=== PATIENT | male | born 2005 | race Two or more races ===

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

== ENCOUNTER 2024-12-24 14:15 | Inpatient (IN) | payer MEDICAID ==
[~2024-12-24] VITALS: Ht 180.3 cm; Wt 83.6 kg
[2024-12-24] MEDS ORDERED: ACETAMINOPHEN 500 MG TAB or CAP PO STA (14:54)
[2024-12-24] MEDS: ACETAMINOPHEN 500 MG TAB or CAP PO ONE (15:00)
--- NOTE | 2024-12-24 15:05 | ED.PDOC ---
History of Present Illness HPI Comments 19M presents to the ER w/ the c/c of a flu. Pt reports on having a GIL, N/, Chills, Fever and Nasal Congestion since yesterday. PMHx:Denies Any SHx:Denies Any HPI: Poor Historian. Family later stated the patient has been having pneumonia every two months since he returned from [place] in July of this year. Most recently he was at [facility] two months ago for the same thing. REVIEW OF SYSTEMS: CONSTITUTIONAL: Denies acute: diaphoresis, HEAD: Denies acute: photophobia Eyes: Denies acute: Double vision, vision loss, eye pain, eye discharge. EARS: Denies acute: tinnitus, hearing loss, ear discharge, ear pain, THROAT: Denies acute: sore throat, swelling, difficulty swallowing , pain with swallowing, change in voice. NECK: Denies acute: neck pain, neck swelling, stiff neck. HEART: Denies acute : chest pain, palpitations, LUNGS: Denies acute: SOB, wheezing, hemoptysis ABDOMEN: Denies acute: abdominal pain, Vomiting, diarrhea, melena , hematemesis, hematochezia SKIN: Denies acute: rash, redness, lesions, itchiness. EXTREMITIES: Denies acute: calf pain, numbness, tingling, weakness, denies pain in extremity. Denies acute: Low back pain. Neuro: Denies acute: focal neurological deficit, motor or sensory focal neurological deficit, tremors, seizure like activity, confusion, dizziness, change in mental status, loss of bowel or bladder function, cauda equina like symptoms. : Denies acute: dysuria, hematuria, flank pain, increase in urinary frequency. PSYCH: Denies acute: hallucination, suicidal ideation, homicidal ideation. PHYSICAL EXAM: General: ----[id number]----acute distress, awake and alert. Head: normocephalic, atraumatic. Neck: supple, trachea is midline, no swelling. Throat: Normal phonation. Eyes:, no erythema, no purulent discharge, no proptosis, no icterus. Heart: regular tachycardia in the setting of fever, no significant murmur appreciated. Lungs: no apparent respiratory distress, Able to speak in full sentences. No wheezing, no rhonchi, no crackles. No stridors Clear to auscultation bilaterally. Abdomen: non tender to palpation, non distended, soft, no guarding, no rebound, + bowel sounds. Neuro: Awake, Alert, oriented to name, self, situation, follows commands GCS=15. Speech is normal. Skin: no petechia, no purpura, no cyanosis, non-pale, not jaundice. Lower extremities: --no - Pitting edema no deformity, no focal swelling, no calf TTP. Makes eye contact. moves all four extremities. Face: no apparent facial droop. Ambulating in the ED independently. No nuchal rigidity, Kernig's sign, Brudzinski's sign, no meningeal signs. ED COURSE: DISCLAIMER: This medical document was created using an electronic medical record system with voice recognition software and computerized dictation system. Although this document has been carefully reviewed, there might still be some phonetic and ty pographical errors. Occasional wrong-word or "sound-alike" substitutions may have occurred due to the inherent limitations of voice recognition software. These areas are purely typographical due to imperfections of the software programs and do not reflect any compromise in the patient's medical care. Please read the chart carefully and recognize, using context, where these substitutions have occurred. Chief Complaint: Fever Time Seen by MD: 15:00 Primary Care Provider: KAMARI Reviewed Notes: Nurses Notes, Medications, Allergies Allergies: Coded Allergies: NO KNOWN ALLERGIES (Unverified , 02/26/10) Information Source: Patient Mode of Arrival: Ambulatory Severity: Moderate Past Medical History PAST MEDICAL HISTORY: Denies Surgical History: Denies all surgeries Family History Family History: Reviewed,noncontributory to illness, Unknown Social History Smoker: Non-Smoker Alcohol: Denies ETOH Use Drugs: Denies Drug Use Lives In: Home Was a procedure done? Was a procedure done?: No X-Ray, Labs, Meds, VS Vital Signs Date Time Temp Pulse Resp B/P (MAP) Pulse Ox O2 Delivery O2 Flow Rate FiO2 12/24/24 19:10 99.9 108 20 162/78 (106) 99 99.9 12/24/24 17:00 98.9 99 20 155/68 (97) 99 98.9 12/24/24 15:23 103.1 128 20 123/64 (83) 96 103.1 12/24/24 15:00 103.1 Lab Test 12/24/24 15:06 12/24/24 15:00 Range/Units Influenza Type A Antigen Negative Negative Influenza Type B Antigen Negative Negative SARS-CoV-2 Antigen (Rapid) Negative NEGATIVE White Blood Count 11.8 H 4.4-10.8 10^3/uL Red Blood Count 6.06 H 4.5-5.90 10^6/uL Hemoglobin 17.0 13.5-17.5 g/dL Hematocrit 49.9 41.0-53.0 % Mean Corpuscular Volume 82.3 80.0-100.0 fL Mean Corpuscular Hemoglobin 28.1 28.0-32.0 pg Mean Corpuscular Hemoglobin Concent 34.1 32.0-36.0 g/dL Red Cell Distribution Width 13.8 11.8-14.3 % Platelet Count 151 140-450 10^3/uL Mean Platelet Volume 10.1 6.9-10.8 fL Neutrophils (%) (Auto) 85.3 H 37.0-80.0 % Lymphocytes (%) (Auto) 11.0 10.0-50.0 % Monocytes (%) (Auto) 3.4 0.0-12.0 % Eosinophils (%) (Auto) 0.2 0.0-7.0 % Basophils (%) (Auto) 0.1 0.0-2.0 % Neutrophils # (Auto) 10.0 H 1.6-8.6 10 ^3/uL Lymphocytes # (Auto) 1.3 0.4-5.4 10 ^3/uL Monocytes # (Auto) 0.4 0-1.3 10 ^3/uL Eosinophils # (Auto) 0 0-0.8 10 ^3/uL Basophils # (Auto) 0 0-0.2 10 ^3/uL Nucleated Red Blood Cells 0.3 % Sodium Level 139 136-145 mmol/L Potassium Level 3.9 3.5-5.1 mmol/L Chloride Level 102 98-107 mmol/L Carbon Dioxide Level 25 20-31 mmol/L Anion Gap 12 5-15 Blood Urea Nitrogen 10 9-23 mg/dL Creatinine 1.12 0.700-1.30 mg/dL Glomerular Filtration Rate Calc 96 >90 mL/min BUN/Creatinine Ratio 8.9 L 10.0-20.0 Serum Glucose 111 H 74-106 mg/dL Lactic Acid Level 2.0 0.4-2.0 mmol/L Calcium Level 11.1 H 8.7-10.4 mg/dL Total Bilirubin 1.3 H 0.2-1.0 mg/dL Aspartate Amino Transferase (AST) 16 <34 U/L Alanine Aminotransferase (ALT) 25 7-40 U/L Alkaline Phosphatase 82 46-116 U/L Total Protein 7.4 5.7-8.2 g/dL Albumin 5.6 H 3.2-4.8 g/dL Monoscreen Negative Current Medications Medications (Trade) Dose Ordered Sig/Seth Route Start Time Stop Time Status Last Admin Sodium Chloride 1,000 ml @ 1,000 mls/hr Q1H ONCE IV 12/24/24 15:00 12/24/24 15:59 DC 12/24/24 19:31 Acetaminophen (Tylenol Tablet Or Capsule) 1,000 mg ONCE ONCE PO 12/24/24 15:00 12/24/24 15:01 DC 12/24/24 15:00 Ceftriaxone Sodium 50 ml @ 100 mls/hr ONCE ONCE IV 12/24/24 15:45 12/24/24 16:14 DC 12/24/24 19:30 [place] [address] Ph: [phone] DIAGNOSTIC IMAGING Diagnostic Imaging Report : [id number] Signed PATIENT: YO ULLOA ROMANACCT: [id number] UNIT: [id number] : 2005 LOC: ER ROOM / BED: / AGE / SEX: 19 / M ADM STATUS: REG ER SERVICE 1446 ORDERING PHYSICIAN: SHAILESH PA DO PROCEDURE(s): CXRP - CHEST PORTABLE REASON: flu like, ORDER NUMBER(s): [id number], ACCESSION NUMBER(s): [id number] CHEST RADIOGRAPH Indication: flu like, Technique: Single frontal view of the chest was obtained Comparison: None FINDINGS: Lines and Tubes: None Lungs: Left mid lung zone patchy opacity. Pleura: No effusion. No pneumothorax. Cardiomediastinal contours: Unremarkable Bones: No acute osseous abnormality. IMPRESSION: Left mid lung zone patchy opacity which may represent pneumonia in the right clinical setting. ATED BY: IVETH MAX DO DICTATED DATE/TIME: 12/24/24 1548 SIGNED BY: IVETH MAX DO SIGNED DATE/TIME: 12/24/24 1548 CC: Time of 1ST Reevaluation: 15:30 Reevaluation 1ST: Unchanged Patient Education/Counseling: Diagnosis, Treatment, Prognosis Family Education/Counseling: No Family Present Departure 1 Departure Time of Disposition: 16:54 Impression: Primary Impression: Community acquired pneumonia Disposition: ADMITTED INPATIENT Admit to: Tele Condition: Guarded Discharged With: Self Critical Care Note Critical Care Time?: No I personally scribed for SHAILESH PA DO ([email or web address]) on 12/24/24 at 15:04. El ectronically submitted by Yemi Estrada ([email or web address]). I personally scribed for SHAILESH PA DO ([email or web address]) on 12/24/24 at 16:30. Elec tronically submitted by Yemi Estrada ([email or web address]). SHAILESH PA DO Dec 24, 2024 15:04
[2024-12-24 15:19] LABS: Basophils # (auto) 0 10 ^3/uL (0-0.2); Eosinophils # (auto) 0 10 ^3/uL (0-0.8); Lymphocytes # (auto) 1.3 10 ^3/uL (0.4-5.4); Mean Corpuscular Volume 82.3 fL (80.0-100.0); Monocytes # (auto) 0.4 10 ^3/uL (0-1.3)
[2024-12-24 15:20] LABS: Basophils % (auto) 0.1 % (0.0-2.0); Eosinophils % (auto) 0.2 % (0.0-7.0); Hematocrit 49.9 % (41.0-53.0); Mean Corpuscular Hemoglobin 28.1 pg (28.0-32.0); Mean Corpuscular Hgb Conc. 34.1 g/dL (32.0-36.0); Monocytes % (auto) 3.4 % (0.0-12.0); Neutrophils % (auto) 85.3 % (37.0-80.0); Nucleated Red Blood Cells % 0.3 %; Platelet Count (auto) 151 10^3/uL (140-450); Red Blood Cells 6.06 10^6/uL (4.5-5.90); Red Cell Distribution Width 13.8 % (11.8-14.3); White Blood Cell 11.8 10^3/uL (4.4-10.8)
[2024-12-24 15:32] LABS: Alanine Aminotransferase 25 U/L (7-40); Alkaline Phosphatase 82 U/L (46-116); Anion Gap 12 (5-15); Aspartate Aminotransferase 16 U/L (<34); BUN/Creatinine Ratio 8.9 (10.0-20.0); Blood Urea Nitrogen 10 mg/dL (9-23); Carbon Dioxide 25 mmol/L (20-31); Chloride 102 mmol/L (98-107); Potassium 3.9 mmol/L (3.5-5.1); Sodium 139 mmol/L (136-145); Total Protein 7.4 g/dL (5.7-8.2)
[2024-12-24 15:33] LABS: Albumin 5.6 g/dL (3.2-4.8); Bilirubin, Total 1.3 mg/dL (0.2-1.0); Calcium 11.1 mg/dL (8.7-10.4); Glucose 111 mg/dL (74-106)
[2024-12-24 15:41] LABS: COVID19 ANTIGEN SOFIA FIA NEGATIVE (NEGATIVE); Rapid Influenza A Negative (Negative); Rapid Influenza B Negative (Negative)
--- NOTE | 2024-12-24 15:50 | DVH ---
CHEST RADIOGRAPH Indication: flu like, Technique: Single frontal view of the chest was obtained Comparison: None FINDINGS: Lines and Tubes: None Lungs: Left mid lung zone patchy opacity. Pleura: No effusion. No pneumothorax. Cardiomediastinal contours: Unremarkable Bones: No acute osseous abnormality. IMPRESSION: Left mid lung zone patchy opacity which may represent pneumonia in the right clinical setting.
[2024-12-24] MEDS ORDERED: guaiFENesin-DM 100/10mg/5ml SYR PO PRN (19:30)
[2024-12-24] MEDS: cefTRIAXone 1GM/50ML D5W 50 ML IV ONE (19:30)
[2024-12-24] MEDS: SODIUM CHLORIDE 0.9% 1,000 ML IV ONE ×2 (19:31→20:14)
[2024-12-24 19:32] LABS: Urine Bacteria None Seen /hpf (None Seen)
[2024-12-24 19:38] LABS: Urine Blood Negative /uL (Negative); Urine Clarity Clear (Clear); Urine Color Yellow (Yellow); Urine Mucus FEW (None Seen); Urine Protein, UAD 1+ (Negative); Urine Specific Gravity 1.037 (1.001-1.035); Urine Squamous Epithelial Cell FEW /hpf (<5); Urine Urobilinogen 8 mg/dL (Negative); Urine WBC 1 /HPF (0-3)
[2024-12-24] MEDS: ONDANSETRON HCL 4 MG/2 ML VIAL IV PRN (19:47)
[2024-12-24] MEDS: KETOROLAC TROMETH 30 MG/ML 1ML VIAL IV ONE (19:49)
[2024-12-24] MEDS: AZITHROMYCIN 500MG/ 250ML 250 ML IV ONE (19:53)
[2024-12-24] MEDS: ACETAMINOPHEN 325 MG TAB PO PRN (20:18)
[2024-12-24 20:32] VITALS: O2SAT 100
[2024-12-24 21:00] VITALS: BP 107/67; PULSE 94; RESP 18; TEMP 100; O2SAT 100
[2024-12-24 21:07] VITALS: BP 92/54; PULSE 83; RESP 16; TEMP 98.7; O2SAT 96
[2024-12-24] MEDS ORDERED: TEMAZEPAM 15 MG CAP PO PRN (22:00)
--- NOTE | 2024-12-24 22:10 | DVHHP2 ---
History of Present Illness Reason for Visit: Flu-like symptoms History of Present Illness 19-year-old male presents for evaluation of flu-like symptoms have been ongoing for the past two days. Reports having body aches, cough, fever and some shortness for breath. No other acute complaints reported. Past Medical History Denies Family History Noncontributory Smoke: No ALCOHOL: none Drugs: None Review of Systems Review of Systems Review of systems are currently negative otherwise addressed in HPI. Allergies: Coded Allergies: NO KNOWN ALLERGIES (Unverified , 02/26/10) Medications Current Medications Medications Dose Ordered Sig/Seth Route Start Time Stop Time Status Last Admin Dose Admin Acetaminophen 650 mg ONCE STAT PO 12/24/24 14:54 12/24/24 14:55 Cancel Ceftriaxone Sodium 50 ml @ 100 mls/hr DAILY@09 IV 12/25/24 09:00 Azithromycin 250 ml @ 125 mls/hr DAILY IV 12/25/24 10:00 Albuterol 2.5 mg Q6HPRN PRN NEB 12/24/24 19:30 Guaifenesin/ Dextromethorphan 10 ml Q4HP PRN PO 12/24/24 19:30 Temazepam 15 mg QHSP PRN PO 12/24/24 22:00 Ondansetron HCl 4 mg Q4HP PRN IV 12/24/24 19:30 12/24/24 19:47 4 MG Acetaminophen 650 mg Q6HP PRN PO 12/24/24 19:30 12/24/24 20:18 650 MG Exam Vital Signs Vital Signs Date Time Temp Pulse Resp B/P (MAP) Pulse Ox O2 Delivery O2 Flow Rate FiO2 12/24/24 21:07 16 Room Air* 0 21 12/24/24 21:07 98.7 83 92/54 (62) 96 98.7 Exam Gen: 19-year-old male in mild distress Skin: Warm, dry, normal color and texture, no rash. HEENT: Normocephalic atraumatic, mucous membranes moist and pink. Neck: Cervical and supraclavicular nodes normal without enlargement, trachea is midline, thyroid gland is normal without masses. Pulmonary: Clear to auscultation and percussion bilaterally. Cardiac: Regular rate and rhythm. No murmur Abdomen: Soft, nontender, nondistended, bowel sounds present all 4 quadrants, no guarding, no rigidity, no organomegaly. Extremities: No cyanosis, clubbing, no edema Neuro: Cranial nerves II through XII grossly intact, normal affect and speech, no focal motor deficits. Labs/Xrays ORDERING PHYSICIAN: SHAILESH PA DO PROCEDURE(s): CXRP - CHEST PORTABLE REASON: flu like, ORDER NUMBER(s): [id number], ACCESSION NUMBER(s): [id number] CHEST RADIOGRAPH Indication: flu like, Technique: Single frontal view of the chest was obtained Comparison: None FINDINGS: Lines and Tubes: None Lungs: Left mid lung zone patchy opacity. Pleura: No effusion. No pneumothorax. Cardiomediastinal contours: Unremarkable Bones: No acute osseous abnormality. IMPRESSION: Left mid lung zone patchy opacity which may represent pneumonia in the right clinical setting. Labs Test 12/24/24 19:31 12/24/24 15:06 12/24/24 15:00 Range/Units Urine Color Yellow Yellow Urine Clarity Clear Clear Urine pH 8.0 5.0-9.0 Urine Specific [place] 1.037 H 1.001-1.035 Urine Protein 1+ H Negative Urine Ketones 2+ H Negative Urine Blood Negative Negative /uL Urine Nitrite Negative Negative Urine Bilirubin Negative Negative Urine Urobilinogen 8 H Negative mg/dL Urine Leukocyte Esterase 1+ Negative /uL Urine RBC 1 0 - 3 /hpf Urine Microscopic WBC 1 0-3 /HPF Urine Squamous Epithelial Cells Few <5 /hpf Urine Bacteria None seen None Seen /hpf Urine Mucus Few None Seen Urine Glucose Normal Normal mg/dL Influenza Type A Antigen Negative Negative Influenza Type B Antigen Negative Negative SARS-CoV-2 Antigen (Rapid) Negative NEGATIVE White Blood Count 11.8 H 4.4-10.8 10^3/uL Red Blood Count 6.06 H 4.5-5.90 10^6/uL Hemoglobin 17.0 13.5-17.5 g/dL Hematocrit 49.9 41.0-53.0 % Mean Corpuscular Volume 82.3 80.0-100.0 fL Mean Corpuscular Hemoglobin 28.1 28.0-32.0 pg Mean Corpuscular Hemoglobin Concent 34.1 32.0-36.0 g/dL Red Cell Distribution Width 13.8 11.8-14.3 % Platelet Count 151 140-450 10^3/uL Mean Platelet Volume 10.1 6.9-10.8 fL Neutrophils (%) (Auto) 85.3 H 37.0-80.0 % Lymphocytes (%) (Auto) 11.0 10.0-50.0 % Monocytes (%) (Auto) 3.4 0.0-12.0 % Eosinophils (%) (Auto) 0.2 0.0-7.0 % Basophils (%) (Auto) 0.1 0.0-2.0 % Neutrophils # (Auto) 10.0 H 1.6-8.6 10 ^3/uL Lymphocytes # (Auto) 1.3 0.4-5.4 10 ^3/uL Monocytes # (Auto) 0.4 0-1.3 10 ^3/uL Eosinophils # (Auto) 0 0-0.8 10 ^3/uL Basophils # (Auto) 0 0-0.2 10 ^3/uL Nucleated Red Blood Cells 0.3 % Sodium Level 139 136-145 mmol/L Potassium Level 3.9 3.5-5.1 mmol/L Chloride Level 102 98-107 mmol/L Carbon Dioxide Level 25 20-31 mmol/L Anion Gap 12 5-15 Blood Urea Nitrogen 10 9-23 mg/dL Creatinine 1.12 0.700-1.30 mg/dL Glomerular Filtration Rate Calc 96 >90 mL/min BUN/Creatinine Ratio 8.9 L 10.0-20.0 Serum Glucose 111 H 74-106 mg/dL Lactic Acid Level 2.0 0.4-2.0 mmol/L Calcium Level 11.1 H 8.7-10.4 mg/dL Total Bilirubin 1.3 H 0.2-1.0 mg/dL Aspartate Amino Transferase (AST) 16 <34 U/L Alanine Aminotransferase (ALT) 25 7-40 U/L Alkaline Phosphatase 82 46-116 U/L Total Protein 7.4 5.7-8.2 g/dL Albumin 5.6 H 3.2-4.8 g/dL Monoscreen Negative Assessment/Plan Assessment/Plan Assessment Community-acquired pneumonia Leukocytosis Plan Admit the patient to Med surge to the hospitalist Rocephin/azithromycin Med nebs Continue treatment per orders. Plan discussed with: Patient My Orders Orders - MAYCO ULLOA Procedure Category Date Status Time Admit ADMIT 12/24/24 Transmitted 19:22 Regular Diet DIET 12/25/24 Transmitted Breakfast Ceftriaxone 1gm/50ml PHA 12/25/24 In Process D5w (Rocephin) 09:00 Azithromycin 500mg/ PHA 12/25/24 In Process 250ml (Zithromax 50 10:00 Albuterol Medneb PHA 12/24/24 In Process (Ventolin Medneb) 19:30 Guaifenesin-Dextromet PHA 12/24/24 In Process Liquid (Robitussin 19:30 Basic Metabolic Panel LAB 12/25/24 Verified 04:00 Temazepam (Restoril) PHA 12/24/24 In Process 22:00 Ondansetron Hcl PHA 12/24/24 In Process (Zofran) 19:30 Complete Blood Count LAB 12/25/24 Verified 04:00 Condition: Stable BE 12/24/24 In Process 19:24 Acetaminophen Tablet PHA 12/24/24 In Process (Tylenol Tablet) 19:30 Bedrest With Bathroom BE 12/24/24 In Process Privileg 19:24 Mrsa Screen BILLY 12/24/24 Uncollected 22:06 Date of Service: Dec 24, 2024 Billing Provider: MAYCO ULLOA Common Visit Codes: [id number] INP/OBS CARE (HIGH) MAYCO ULLOA Dec 24, 2024 22:10
[2024-12-25] VITALS (11 sets, daily range): BP systolic 90–110; BP diastolic 50–67; PULSE 57–95; RESP 16–18; TEMP 96.2–98.4; O2SAT 95–98
[2024-12-25 06:46] LABS: Basophils # (auto) 0 10 ^3/uL (0-0.2); Basophils % (auto) 0.2 % (0.0-2.0); Eosinophils # (auto) 0 10 ^3/uL (0-0.8); Eosinophils % (auto) 0.5 % (0.0-7.0); Hematocrit 42.2 % (41.0-53.0); Hemoglobin 14.8 g/dL (13.5-17.5); Lymphocytes % (auto) 20.5 % (10.0-50.0); Mean Corpuscular Hemoglobin 28.9 pg (28.0-32.0); Mean Corpuscular Volume 82.5 fL (80.0-100.0); Monocytes # (auto) 0.6 10 ^3/uL (0-1.3); Monocytes % (auto) 6.2 % (0.0-12.0); Neutrophils % (auto) 72.6 % (37.0-80.0); Platelet Count (auto) 125 10^3/uL (140-450); Red Blood Cells 5.12 10^6/uL (4.5-5.90); Red Cell Distribution Width 13.7 % (11.8-14.3); White Blood Cell 9.7 10^3/uL (4.4-10.8)
[2024-12-25 06:53] LABS: Anion Gap 9 (5-15); Carbon Dioxide 27 mmol/L (20-31); Chloride 106 mmol/L (98-107); Potassium 3.8 mmol/L (3.5-5.1); Sodium 142 mmol/L (136-145)
[2024-12-25 06:54] LABS: Calcium 8.7 mg/dL (8.7-10.4)
[2024-12-25 06:58] LABS: Glucose 100 mg/dL (74-106)
[2024-12-25 06:59] LABS: Blood Urea Nitrogen 12 mg/dL (9-23)
[2024-12-25] MEDS: cefTRIAXone 1GM/50ML D5W 50 ML IV SCH (09:18)
[2024-12-25] MEDS: AZITHROMYCIN 500MG/ 250ML 250 ML IV SCH (09:18)
--- NOTE | 2024-12-25 11:35 | DVH ---
Procedure: CT CHEST WITHOUT CONTRAST Reason for study/Clinical History: recurrent penumonia Comparison Study: None Exam Date: 12/25/2024 10:43 AM TECHNIQUE: Multidetector CT of the chest was performed from the lung apices to the upper abdomen with out the use of intravenous contract. Axial, coronal and sagittal multiplanar reformats were performed . Radiation Dose Information: CT Dose: CTDI volume is 10.95 mGy. Dose-length product is 423.16 mGy*cm The dose indicators for CT are the volume Computed Tomography (CT) Dose Index (CTDIvol) and the Dose Length Product (DLP), and are measured in units of mGy and mGy-cm, respectively. These indicators are not patient dose, but values generated from the CT scanner acquisition factors. The report includes radiation exposure data for exposures received during this examination. FINDINGS: Lower neck: Normal thyroid. Lungs: Patchy consolidation with air bronchograms in the mid left upper lobe. The lungs are otherwise clear. No pleural effusion or pneumothorax. Heart/Vascular Structures: Normal heart size. No pericardial effusion. Lymph Nodes: No adenopathy Pleura: No pleural effusion or significant pneumothorax. Musculoskeletal: No acute osseous abnormality. Soft tissues: Normal. Upper abdomen: Limited portions of the upper abdomen are unremarkable. IMPRESSION: 1. Patchy consolidation with air bronchograms in the left upper lobe, suspicious for pneumonia. Radiation optimization: All CT scans at this facility use at least one of these dose optimization cassandra hniques: automated exposure control mA and/or kV adjustment per patient size (includes targeted exam s where dose is matched to clinical indication) or iterative reconstruction.
--- NOTE | 2024-12-25 16:04 | DVHPNRES ---
Progress Note Date Seen: Dec 26, 2024 Resident Creating Document: SANDRA MORROW RESIDENT Has the PT tested + for MRSA If YES, has PT been informed?: No Medical Necessity Reason Pt with a Central, PICC or Fol: No Subjective Review of Systems 19-year-old male presents for evaluation of flu-like symptoms have been ongoing for the past two days. Reports having body aches,cough with yellowish-greenish sputum production, fever and some shortness for breath. No other acute complaints reported. Patient stated he was living in [place] for the past year and he cam back 6 months ago, this is the 3rd episode of pneumonia since he came. He was treated before in [place] He states rinitis. CT of the chest revealed Patchy consolidation with air bronchograms in the left upper lobe, suspicious for pneumonia Past Medical History Recurrent pneumonias and need of LP when he was 9y old Family History Noncontributory Smoke: No ALCOHOL: none Drugs: None Objective vital signs Vital Sign Date Time Temp Pulse Resp B/P (MAP) Pulse Ox O2 Delivery O2 Flow Rate FiO2 12/25/24 12:43 97.3 81 17 102/63 (76) 97 97.3 12/25/24 10:00 Room Air* 0 21 Total Intake and Output 12/24/24 12/24/24 12/25/24 15:00 23:00 07:00 Intake Total 1050 ml 0 ml Balance 1050 ml 0 ml medications Current Medications Medications Dose Ordered Sig/Seth Route Start Time Stop Time Status Last Admin Dose Admin Acetaminophen 650 mg ONCE STAT PO 12/24/24 14:54 12/24/24 14:55 Cancel Ceftriaxone Sodium 50 ml @ 100 mls/hr DAILY@09 IV 12/25/24 09:00 12/25/24 09:18 100 MLS/HR Azithromycin 250 ml @ 125 mls/hr DAILY IV 12/25/24 10:00 12/25/24 09:18 125 MLS/HR Albuterol 2.5 mg Q6HPRN PRN NEB 12/24/24 19:30 Guaifenesin/ Dextromethorphan 10 ml Q4HP PRN PO 12/24/24 19:30 Temazepam 15 mg QHSP PRN PO 12/24/24 22:00 Ondansetron HCl 4 mg Q4HP PRN IV 12/24/24 19:30 12/24/24 19:47 4 MG Acetaminophen 650 mg Q6HP PRN PO 12/24/24 19:30 12/24/24 20:18 650 MG Examination General Appearance: Alert, Oriented X3, Cooperative, No acute distress HEENT: Atraumatic, PERRLA, EOMI, Mucous membrane moist/pink Respiratory: Clear to auscultation, Normal air movement Cardiovascular: Regular rate, Normal S1, Normal S2, No murmurs, no chest wall tenderness Abdominal: NO distention, no tenderness, bowel sounds present, no scars noted Extremities: No clubbing, No cyanosis, No edema, Normal pulses, No tenderness/swelling Skin: No rashes, No breakdown, No significant lesion Neuro: Normal gait, Normal speech, Strength at 5/5 X4 ext, Normal tone, Sensation intact, Cranial nerves 3-12 NL, Reflexes 2+ Psych/Mental Status: Mental status NL, Mood NL laboratory and microbiology Laboratory Tests 12/25/24 05:42 Test 12/25/24 05:42 Range/Units Serum Glucose 100 74-106 mg/dL Microbiology Date/Time Source Procedure Growth Status 12/25/24 06:52 Nose MRSA Screen - Final Complete 12/24/24 15:00 Blood Blood Culture - Preliminary NO GROWTH AFTER 24 HOURS OF INCUBATION. Resulted Problem List/Assessment/Plan Problem List/Assessment/Plan #Pneumonia due to gram+/gram - #Sepsis due to pneumonia #Mild transminitis Regular diet Azithromycin + ceftraixone Albuterol PRN Tylenol Guaifenesin PO Case discussed with Dr Jones Full code Plan discussed with: Patient, Other (rn) My Orders My Orders Orders - SANDRA MORROW RESIDENT Procedure Category Date Status Time Chest Without Contrast CT 12/25/24 Resulted 09:53 *Consult CONS 12/25/24 Transmitted / 10:17 Immunoglobulin E LAB 12/25/24 In Process 11:13 Respiratory Culture BILLY 12/25/24 In Process W/ Gs 11:22 SANDRA MORROW RESIDENT Dec 25, 2024 16:04
--- NOTE | 2024-12-25 19:20 | DVHCONRES ---
Date Seen: Dec 25, 2024 Resident Creating Document: LORI TOSCANO RESIDENT Referring Physician Dr. Jayla Uriostegui Reason for Consultation Recurrent pneumonia History of Present Illness Patient is a 19-year-old male with a past history of pneumonia since 2022. Pre sented to the ED after having fever associated with cough with yellowish- greenish sputum production. According to the mother this new symptoms began about on Monday but became progressively worse by Monday thus has prompting patient to come to the ED yesterday Monday. Patient denied coming in contact with any sick person or traveling outside the country. He denied any childhood persistent illnesses or any member of the family who has had any chronic illnesses. According to the patient, he is usually healthy and on a normal day he is able to walk without getting tired; However, for the past about 5 days or so he has been having difficulties with climbing up the stairs as he becomes short of breath doing so. Chest x-ray revealed Left mid lung zone patchy opacity which may represent pneumonia in the right clinical setting. Thus pulmonology was consulted for further evaluation. On further and currently patient denied any history of 60 fibrosis travel outside the country smoking or secondhand smoke. He denied any constipation or recurrence upper airway infections. CT of the chest revealed Patchy consolidation with air bronchograms in the left upper lobe, suspicious for pneumonia Past Medical History 2 episodes of pneumonia since 2022 Past Surgical History None Family History: Patient reports no known family medical history. Allergies: Coded Allergies: NO KNOWN ALLERGIES (Unverified , 02/26/10) Home Meds No Active Prescriptions or Reported Meds Current Medications Current Medications Medications (Trade) Dose Ordered Sig/Seth Route PRN Reason Start Time Stop Time Status Last Admin Ceftriaxone Sodium 50 ml @ 100 mls/hr DAILY@09 IV 12/25/24 09:00 12/25/24 09:18 Azithromycin 250 ml @ 125 mls/hr DAILY IV 12/25/24 10:00 12/25/24 09:18 Albuterol (Ventolin Medneb) 2.5 mg Q6HPRN PRN NEB SHORTNESS OF BREATH 12/24/24 19:30 Guaifenesin/ Dextromethorphan (Robitussin-Dm Liquid) 10 ml Q4HP PRN PO FOR COUGH 12/24/24 19:30 Temazepam (Restoril) 15 mg QHSP PRN PO FOR INSOMNIA 12/24/24 22:00 Ondansetron HCl (Zofran) 4 mg Q4HP PRN IV NAUSEA / VOMITING 12/24/24 19:30 12/24/24 19:47 Acetaminophen (Tylenol Tablet) 650 mg Q6HP PRN PO PAIN SCALE 1-3 OR TEMP>100.4 12/24/24 19:30 12/25/24 17:43 Review of Systems Constitutional: Denies fever no chills no feeling of malaise HEENT: Denies headache, ear pain, ear discharges, conjunctivitis, nasal discharge throat pain Cardiovascular: Denies chest pain, palpitation, orthopnea, PND, or pedal edema Respiratory: Denies shortness of breath; mild cough, sputum production, hemoptysis, chest/epigastric pain GI: Denies abdominal pain, nausea, vomiting, diarrhea, hematemesis, hematochezia, : Denies frequency, urgency, hematuria, Endocrine: Denies unintentional weight gain or weight loss, feeling of hot flashes, Lex: Denies easy bruising, bleeding disorders, epistaxis Musculoskeletal: Denies joint pains, muscle aches Psych: No evidence of depression, stan, suicidal ideation Vital Signs Vital Signs Date Time Temp Pulse Resp B/P (MAP) Pulse Ox O2 Delivery O2 Flow Rate FiO2 12/25/24 16:25 97.4 80 17 101/63 (76) 96 97.4 12/25/24 10:00 Room Air* 0 21 Physical Exam General Appearance: Alert, Oriented X3, Cooperative, No acute distress HEENT: Atraumatic, PERRLA, EOMI, Mucous membrane moist/pink Respiratory: Clear to auscultation, Normal air movement Cardiovascular: Regular rate, Normal S1, Normal S2, No murmurs, no chest wall tenderness Abdominal: NO distention, no tenderness, bowel sounds present, no scars noted Extremities: No clubbing, No cyanosis, No edema, Normal pulses, No tenderness/swelling Skin: No rashes, No breakdown, No significant lesion Neuro: Normal gait, Normal speech, Strength at 5/5 X4 ext, Normal tone, Sensation intact, Cranial nerves 3-12 NL, Reflexes 2+ Psych/Mental Status: Mental status NL, Mood NL Labs/Diagnostic Data Labs Test 12/25/24 11:56 12/25/24 05:42 12/24/24 19:31 12/24/24 15:06 Range/Units White Blood Count 9.7 4.4-10.8 10^3/uL Red Blood Count 5.12 4.5-5.90 10^6/uL Hemoglobin 14.8 13.5-17.5 g/dL Hematocrit 42.2 # 41.0-53.0 % Mean Corpuscular Volume 82.5 80.0-100.0 fL Mean Corpuscular Hemoglobin 28.9 28.0-32.0 pg Mean Corpuscular Hemoglobin Concent 35.0 32.0-36.0 g/dL Red Cell Distribution Width 13.7 11.8-14.3 % Platelet Count 125 L 140-450 10^3/uL Mean Platelet Volume 10.7 6.9-10.8 fL Neutrophils (%) (Auto) 72.6 37.0-80.0 % Lymphocytes (%) (Auto) 20.5 10.0-50.0 % Monocytes (%) (Auto) 6.2 0.0-12.0 % Eosinophils (%) (Auto) 0.5 0.0-7.0 % Basophils (%) (Auto) 0.2 0.0-2.0 % Neutrophils # (Auto) 7.0 1.6-8.6 10 ^3/uL Lymphocytes # (Auto) 2.0 0.4-5.4 10 ^3/uL Monocytes # (Auto) 0.6 0-1.3 10 ^3/uL Eosinophils # (Auto) 0 0-0.8 10 ^3/uL Basophils # (Auto) 0 0-0.2 10 ^3/uL Nucleated Red Blood Cells 0.0 % Sodium Level 142 136-145 mmol/L Potassium Level 3.8 3.5-5.1 mmol/L Chloride Level 106 98-107 mmol/L Carbon Dioxide Level 27 20-31 mmol/L Anion Gap 9 5-15 Blood Urea Nitrogen 12 9-23 mg/dL Creatinine 0.92 0.700-1.30 mg/dL Glomerular Filtration Rate Calc 121 >90 mL/min BUN/Creatinine Ratio 13.0 10.0-20.0 Serum Glucose 100 74-106 mg/dL Calcium Level 8.7 8.7-10.4 mg/dL HIV (1&2) Antibody Negative Negative Urine Color Yellow Yellow Urine Clarity Clear Clear Urine pH 8.0 5.0-9.0 Urine Specific [place] 1.037 H 1.001-1.035 Urine Protein 1+ H Negative Urine Ketones 2+ H Negative Urine Blood Negative Negative /uL Urine Nitrite Negative Negative Urine Bilirubin Negative Negative Urine Urobilinogen 8 H Negative mg/dL Urine Leukocyte Esterase 1+ Negative /uL Urine RBC 1 0 - 3 /hpf Urine Microscopic WBC 1 0-3 /HPF Urine Squamous Epithelial Cells Few <5 /hpf Urine Bacteria None seen None Seen /hpf Urine Mucus Few None Seen Urine Glucose Normal Normal mg/dL Influenza Type A Antigen Negative Negative Influenza Type B Antigen Negative Negative SARS-CoV-2 Antigen (Rapid) Negative NEGATIVE Test 12/24/24 15:00 Range/Units Lactic Acid Level 2.0 0.4-2.0 mmol/L Total Bilirubin 1.3 H 0.2-1.0 mg/dL Aspartate Amino Transferase (AST) 16 <34 U/L Alanine Aminotransferase (ALT) 25 7-40 U/L Alkaline Phosphatase 82 46-116 U/L Total Protein 7.4 5.7-8.2 g/dL Albumin 5.6 H 3.2-4.8 g/dL Monoscreen Negative Microbiology Date/Time Source Procedure Growth Status 12/25/24 06:52 Nose MRSA Screen - Final Complete 12/24/24 15:00 Blood Blood Culture - Preliminary NO GROWTH AFTER 24 HOURS OF INCUBATION. Resulted Assessment Assessment and plan Community-acquired pneumonia --> ceftriaxone plus azithromycin for 5-7 days -> discharged home on azithromycin to complete a course --> incentive spirometry --> repeat chest x-ray in 2-3 months --> follow up the pulmonology center with Dr. Peters Sepsis secondary to pneumonia --> continue antibiotics treatment UTI -> continue antibiotics Thank you Dr. Foster for the consultation Goal of care discussed with patient +family at the bedside Case and plan discussed +Dr. Paula Plan discussed with: Patient, Other LORI TOSCANO RESIDENT Dec 25, 2024 19:20
[2024-12-26] VITALS (12 sets, daily range): BP systolic 98–115; BP diastolic 54–70; PULSE 68–85; RESP 16–18; TEMP 97.6–98.6; O2SAT 96–100
[2024-12-26] MEDS: ALBUTEROL SULF 2.5 MG/0.5ML(0.5%) NEB SOLN NEB PRN (00:31)
[2024-12-26] MEDS ORDERED: NAPR-957 PO (10:34)
[2024-12-26] MEDS ORDERED: AZIT-185 PO (10:34)
--- NOTE | 2024-12-26 17:17 | DVHDSRES ---
Discharge Summary Date of Admission Resident Creating Document: SANDRA MORROW RESIDENT Dec 24, 2024 at 19:22 Date of Discharge: Dec 26, 2024 Admitting Diagnosis #Pneumonia due to gram+/gram - #Sepsis due to pneumonia Labs/Diagnostic Data: Laboratory Results Test 12/25/24 11:56 12/25/24 05:42 12/24/24 19:31 12/24/24 15:06 White Blood Count 9.7 10^3/uL (4.4-10.8) Red Blood Count 5.12 10^6/uL (4.5-5.90) Hemoglobin 14.8 g/dL (13.5-17.5) Hematocrit 42.2 % (41.0-53.0) Mean Corpuscular Volume 82.5 fL (80.0-100.0) Mean Corpuscular Hemoglobin 28.9 pg (28.0-32.0) Mean Corpuscular Hemoglobin Concent 35.0 g/dL (32.0-36.0) Red Cell Distribution Width 13.7 % (11.8-14.3) Platelet Count 125 10^3/uL (140-450) Mean Platelet Volume 10.7 fL (6.9-10.8) Neutrophils (%) (Auto) 72.6 % (37.0-80.0) Lymphocytes (%) (Auto) 20.5 % (10.0-50.0) Monocytes (%) (Auto) 6.2 % (0.0-12.0) Eosinophils (%) (Auto) 0.5 % (0.0-7.0) Basophils (%) (Auto) 0.2 % (0.0-2.0) Neutrophils # (Auto) 7.0 10 ^3/uL (1.6-8.6) Lymphocytes # (Auto) 2.0 10 ^3/uL (0.4-5.4) Monocytes # (Auto) 0.6 10 ^3/uL (0-1.3) Eosinophils # (Auto) 0 10 ^3/uL (0-0.8) Basophils # (Auto) 0 10 ^3/uL (0-0.2) Nucleated Red Blood Cells 0.0 % Sodium Level 142 mmol/L (136-145) Potassium Level 3.8 mmol/L (3.5-5.1) Chloride Level 106 mmol/L (98-107) Carbon Dioxide Level 27 mmol/L (20-31) Anion Gap 9 (5-15) Blood Urea Nitrogen 12 mg/dL (9-23) Creatinine 0.92 mg/dL (0.700-1.30) Glomerular Filtration Rate Calc 121 mL/min (>90) BUN/Creatinine Ratio 13.0 (10.0-20.0) Serum Glucose 100 mg/dL (74-106) Calcium Level 8.7 mg/dL (8.7-10.4) HIV (1&2) Antibody Negative (Negative) Urine Color Yellow (Yellow) Urine Clarity Clear (Clear) Urine pH 8.0 (5.0-9.0) Urine Specific [place] 1.037 (1.001-1.035) Urine Protein 1+ (Negative) Urine Ketones 2+ (Negative) Urine Blood Negative /uL (Negative) Urine Nitrite Negative (Negative) Urine Bilirubin Negative (Negative) Urine Urobilinogen 8 mg/dL (Negative) Urine Leukocyte Esterase 1+ /uL (Negative) Urine RBC 1 /hpf (0 - 3) Urine Microscopic WBC 1 /HPF (0-3) Urine Squamous Epithelial Cells Few /hpf (<5) Urine Bacteria None seen /hpf (None Seen) Urine Mucus Few (None Seen) Urine Glucose Normal mg/dL (Normal) Influenza Type A Antigen Negative (Negative) Influenza Type B Antigen Negative (Negative) SARS-CoV-2 Antigen (Rapid) Negative (NEGATIVE) Test 12/24/24 15:00 Lactic Acid Level 2.0 mmol/L (0.4-2.0) Total Bilirubin 1.3 mg/dL (0.2-1.0) Aspartate Amino Transferase (AST) 16 U/L (<34) Alanine Aminotransferase (ALT) 25 U/L (7-40) Alkaline Phosphatase 82 U/L (46-116) Total Protein 7.4 g/dL (5.7-8.2) Albumin 5.6 g/dL (3.2-4.8) Monoscreen Negative Other Laboratory Tests 12/25/24 05:42 Brief Hx & Hospital Course: The patient is a 19-year-old male with a history of recurrent pneumonia who presented with fever, body aches, yellowish-green sputum, and shortness of breath. Symptoms began two days prior to admission. CT chest revealed patchy consolidation with air bronchograms in the left upper lobe, concerning for pneumonia. He was treated with IV ceftriaxone and azithromycin for presumed community-acquired pneumonia. Sepsis was suspected based on clinical presentation, but he remained hemodynamically stable without vasopressor requirement. He was also found to have mild transmititis,Pulmonology was consulted given recurrent episodes of pneumonia since 2022, who recommend f/u as outpatient The patient improved clinically with antibiotic therapy. He was afebrile, with normalized vital signs, and tolerated a regular diet. No further supplemental oxygen was required. Discharge Condition: Stable Discharge Disposition: Home Discharge Medications: Azithromycin PO to complete 7 day course Case discussed with Dr Jones Consults/Reason for consult pulmonology due to recurrent pneumonia Operations or Procedures Procedure: CT CHEST WITHOUT CONTRAST Reason for study/Clinical History: recurrent penumonia Comparison Study: None Exam Date: 12/25/2024 10:43 AM TECHNIQUE: Multidetector CT of the chest was performed from the lung apices to the upper abdomen without the use of intravenous contract. Axial, coronal and sagittal multiplanar reformats were performed. Radiation Dose Information: CT Dose: CTDI volume is 10.95 mGy. Dose-length product is 423.16 mGy*cm The dose indicators for CT are the volume Computed Tomography (CT) Dose Index (CTDIvol) and the Dose Length Product (DLP), and are measured in units of mGy and mGy-cm, respectively. These indicators are not patient dose, but values generated from the CT scanner acquisition factors. The report includes radiation exposure data for exposures received during this examination. FINDINGS: Lower neck: Normal thyroid. Lungs: Patchy consolidation with air bronchograms in the mid left upper lobe. The lungs are otherwise clear. No pleural effusion or pneumothorax. Heart/Vascular Structures: Normal heart size. No pericardial effusion. Lymph Nodes: No adenopathy Pleura: No pleural effusion or significant pneumothorax. Musculoskeletal: No acute osseous abnormality. Soft tissues: Normal. Upper abdomen: Limited portions of the upper abdomen are unremarkable. IMPRESSION: 1. Patchy consolidation with air bronchograms in the left upper lobe, suspicious for pneumonia. Condition at Discharge: Stable Final Diagnosis/Problems List #Pneumonia due to gram+/gram - #Sepsis due to pneumonia #Mild transminitis Discharge Disposition: Home Discharge Instruct/Medications Diet: Regular Activity: Light activity Follow Up/Referral: please fu with Dr Peters Medications: see prescription Discharge Statement: "Patient was advised to return to the ER or call 911 if any headaches, dizziness, shortness of breath, chest pain, abdominal pain, bleeding, fevers, or worsening of medical condition. Patient was counseled about treatment plan, medications, possible side effects, patientverbalized understanding. All questions were answered to the best of my ability. This discharge took greater then 30 minutes in planning, reviewing documentation, counseling the patient, and discussing with other team members." ASSESSMENT ASSESSMENT Assessment pneumonia SANDRA MORROW RESIDENT Dec 26, 2024 17:17
== END 2024-12-26 14:00 | disposition home or self-care (01) | DRG 720 ==
LOC: ER 14:15 → OVERFLOW 19:22 → WEST WING 22:53
PROVIDERS: ADMIT Student in an Organized Health Care Education/Training Program; ATTEND Emergency Medicine
DX: A41.50 Gram-negative sepsis, unspecified (principal); J15.69 Pneumonia due to other Gram-negative bacteria; N39.0 Urinary tract infection, site not specified; J15.9 Unspecified bacterial pneumonia; Z20.822 Contact with and (suspected) exposure to COVID-19
CPT/HCPCS: 36415; 71045; 71250; 80048; 80053; 81001; 82785; 83605; 85025; 86308; 86703; 87040; 87070; 87081; 87205; 87426; 87804; 94640; 96365; G0378; J1885; J2405